=== PATIENT | female | born 1975 | race Caucasian/White ===

== ENCOUNTER 2018-04-29 16:28 | Emergency (ER) | payer MEDICARE, OTHER ==
[~2018-04-29] VITALS: Ht 157.5 cm; Wt 52.6 kg
[~2018-04-29 16:28] MED LIST: (None)20 M1 PO; ALBU.083IS INH; ALBU90OI INH; ALBU90OI61 INH; ANTOXYBENA AD; AZIT250 PO; BENADRYL; BENZ100A PO; Benadryl 50 mg50 MG PO; CEPH500 PO; CLIN300 PO; CYCL10 PO; Child Vitamin1 EACH PO; Cleocin HCl300 MG PO; Cortisporin Ey7.5 ML LEFTEYE; DIPH50 PO; EPIN.3I IM; FAMO40 PO; FERR325 PO; HYDACE5 PO; HYDACE5325 PO; HYDCOR2.5B TOP; HYDHCL25 PO; HYDPAM25 PO; IBUP400 PO; IBUP600 PO; IBUP800 PO; ISODICACE PO; LORA10ER PO; METPRE4DP PO; Mobic15 MG PO; NAPR500 PO; Naprosyn500 MG PO; PRED S O P OP; PRED10 PO; PROM25 PO; PROMETHAZINE-D473 ML PO; PSEU120ER PO; Pepcid20 MG PO; Prednisone10 MG PO; Prednisone20 MG PO; SULTRIDS PO; TRAM50 PO; TRIA80TC TOP; Ultram50 MG PO; Vistaril25 MG PO; Zithromax250 MG PO
[2018-04-29] MEDS ORDERED: Pepcid20 MG PO (17:03)
[2018-04-29] MEDS ORDERED: Prednisone20 MG PO (17:03)
[2018-04-29] MEDS ORDERED: BENADRYL25 MG PO (17:03)
== END 2018-04-29 17:16 | disposition home or self-care (01) ==
LOC: ER 16:28
DX: L50.9 Urticaria, unspecified (principal); F17.210 Nicotine dependence, cigarettes, uncomplicated
CPT/HCPCS: 99282; Q0163

== ENCOUNTER 2018-05-18 18:09 | Emergency (ER) | payer MEDICARE, OTHER ==
[~2018-05-18] VITALS: Ht 157.5 cm; Wt 50.8 kg
[~2018-05-18 18:09] MED LIST changes: +BENADRYL25 MG PO
[2018-05-18] MEDS ORDERED: PRED20 PO (18:51)
== END 2018-05-18 18:59 | disposition home or self-care (01) ==
LOC: ER 18:09
DX: T55.0X1A Toxic effect of soaps, accidental (unintentional), initial encounter (principal); L25.3 Unspecified contact dermatitis due to other chemical products; Z88.0 Allergy status to penicillin; Z88.8 Allergy status to other drugs, medicaments and biological substances; F17.210 Nicotine dependence, cigarettes, uncomplicated
CPT/HCPCS: 99282

== ENCOUNTER 2018-08-07 19:57 | Emergency (ER) | payer MEDICARE, OTHER ==
[~2018-08-07] VITALS: Ht 157.5 cm; Wt 49.8 kg
[~2018-08-07 19:57] MED LIST changes: +PRED20 PO
[2018-08-07] MEDS ORDERED: Prednisone20 MG PO (20:11)
[2018-08-07] MEDS ORDERED: Pepcid40 MG PO (20:11)
== END 2018-08-07 20:17 | disposition home or self-care (01) ==
LOC: ER 19:57
DX: L50.9 Urticaria, unspecified (principal); J45.909 Unspecified asthma, uncomplicated; F17.210 Nicotine dependence, cigarettes, uncomplicated; Z88.0 Allergy status to penicillin; Z88.6 Allergy status to analgesic agent
CPT/HCPCS: 99282; J1100; Q0163

== ENCOUNTER 2018-12-02 14:05 | Emergency (ER) | payer MEDICARE, OTHER ==
[~2018-12-02] VITALS: Ht 157.5 cm; Wt 49.9 kg
[~2018-12-02 14:05] MED LIST changes: +Pepcid40 MG PO
[2018-12-02] MEDS ORDERED: Vibramycin100 MG PO (15:16)
== END 2018-12-02 15:27 | disposition home or self-care (01) ==
LOC: ER 14:05
DX: L03.032 Cellulitis of left toe (principal); L50.9 Urticaria, unspecified; J45.909 Unspecified asthma, uncomplicated; Z88.0 Allergy status to penicillin; Z88.6 Allergy status to analgesic agent; Z79.899 Other long term (current) drug therapy; F17.210 Nicotine dependence, cigarettes, uncomplicated
CPT/HCPCS: 73630; 99283-25

== ENCOUNTER 2019-05-29 13:07 | Emergency (ER) | payer MEDICARE, OTHER ==
[~2019-05-29] VITALS: Ht 157.5 cm; Wt 45.4 kg
[~2019-05-29 13:07] MED LIST changes: +Vibramycin100 MG PO
[2019-05-29] MEDS ORDERED: GUAI600T33 PO (15:33)
[2019-05-29] MEDS ORDERED: AZIT250 PO (15:33)
[2019-05-29] MEDS ORDERED: ALBU90OI INH (15:33)
== END 2019-05-29 15:44 | disposition home or self-care (01) ==
LOC: ER 13:07
DX: J40 Bronchitis, not specified as acute or chronic (principal); Z88.0 Allergy status to penicillin; Z88.6 Allergy status to analgesic agent; F17.200 Nicotine dependence, unspecified, uncomplicated
CPT/HCPCS: 71046; 99283-25

== ENCOUNTER 2022-11-12 17:58 | Emergency (ER) | payer MEDICARE, OTHER ==
[~2022-11-12] VITALS: Ht 157.5 cm; Wt 47.6 kg
[~2022-11-12 17:58] MED LIST changes: +GUAI600T33 PO
[2022-11-12 18:19] VITALS: BP 169/84
[2022-11-12] MEDS ORDERED: OCUFLOX510 RIGHTEAR (19:17)
== END 2022-11-12 19:28 | disposition home or self-care (01) ==
LOC: ER 17:58
DX: H60.91 Unspecified otitis externa, right ear (principal); Z88.0 Allergy status to penicillin; Z88.6 Allergy status to analgesic agent; F17.210 Nicotine dependence, cigarettes, uncomplicated
CPT/HCPCS: 99282; A9270

== ENCOUNTER 2023-01-22 21:55 | Emergency (ER) | payer MEDICARE, OTHER ==
[~2023-01-22] VITALS: Ht 170.2 cm; Wt 40.8 kg
[~2023-01-22 21:55] MED LIST changes: +OCUFLOX510 RIGHTEAR
[2023-01-22 22:01] VITALS: BP 139/82
== END 2023-01-22 23:35 | disposition home or self-care (01) ==
LOC: ER 21:55
DX: B34.9 Viral infection, unspecified (principal); F17.210 Nicotine dependence, cigarettes, uncomplicated; Z88.0 Allergy status to penicillin; Z88.6 Allergy status to analgesic agent
CPT/HCPCS: 99283; J1885

== ENCOUNTER 2023-06-30 19:13 | Inpatient (IN) | payer MEDICARE, OTHER ==
[~2023-06-30] VITALS: Ht 157.5 cm; Wt 45.4 kg
[2023-06-30 20:06] LABS: BASOPHILS ABSOLUTE AUTO 0.04 K/mm3 (0.00-0.23); BASOPHILS PERCENT AUTO 0 % (0-2); EOSINOPHILS ABSOLUTE AUTO 0.09 K/mm3 (0.00-0.68); EOSINOPHILS PERCENT AUTO 1 % (0-6); Hematocrit 46.2 % (33.0-51.0); Hemoglobin 15.8 g/dL (11.5-16.0); IMMATURE GRAN ABSOLUTE AUTO 0.06 K/mm3 (0.00-0.10); IMMATURE GRAN PERCENT AUTO 1 % (0-1); LYMPHOCYTES PERCENT AUTO 25 % (21-46); MONOCYTES PERCENT AUTO 9 % (4-13); Mean Corpuscular HGB Conc 34.2 g/dL (31.5-36.5); Mean Corpuscular Volume 91 fL (80-100); Mean Platelet Volume 9.3 fL (9.1-12.4); NEUTROPHILS ABSOLUTE AUTO 8.43 K/mm3 (1.96-9.15); NEUTROPHILS PERCENT AUTO 65 % (41-73); Platelet Count 303 K/mm3 (150-400); RDW Coefficient Variation 13.2 % (11.7-14.2); RDW Standard Deviation 44.3 fL (35.1-46.3); Red Blood Cell Count 5.09 M/mm3 (3.80-5.20); White Blood Cell Count 12.92 K/mm3 (4.00-11.30)
[2023-06-30 20:38] LABS: Alanine Aminotransfer (ALT/SGP 31 U/L (12-78); Albumin, Blood 3.7 g/dL (3.4-5.0); Albumin/Globulin Ratio 1.1 (0.8-1.8); Alk Phos 80 U/L (50-136); Anion Gap 8 mmol/L (6-16); Aspartate Aminotrans (AST/SGOT 17 U/L (12-37); Bilirubin, Total 0.3 mg/dL (0.1-1.0); Blood Urea Nitrogen 12 mg/dL (8-24); Bun/Creatinine Ratio 21.5 (12.0-20.0); CO2, Blood 25 mmol/L (21-32); Calcium, Blood 9.2 mg/dL (8.5-10.1); Chloride, Blood 110 mmol/L (98-108); Creatinine, Blood 0.56 mg/dL (0.40-1.00); Globulin, Blood 3.4 g/dL (2.2-4.0); Glomerular Filtration Rate 113 (60-); Glucose, Blood 105 mg/dL (70-99); Potassium, Blood 2.9 mmol/L (3.5-5.5); Sodium, Blood 143 mmol/L (136-145); Total Protein, Blood 7.1 g/dL (6.4-8.2)
[2023-06-30] MEDS ORDERED: Potassium Chl 20MEQ/Water100ML 100 ML IV SCH (21:00)
[2023-06-30 21:02] LABS: Magnesium, Blood 2.2 mg/dL (1.6-2.4)
[2023-06-30] MEDS ORDERED: NS 1,000 ML IV ONE ×2 (21:09→22:35)
[2023-06-30] MEDS ORDERED: Acetaminophen 325 MG TABLET PO ONE (21:10)
[2023-06-30 22:00] LABS: International Normalized Ratio 0.97; Prothrombin Time Results 10.2 Sec (9.7-11.5)
[2023-06-30] MEDS ORDERED: Ondansetron HCl 2 MG / ML 2ML Vial IV PRN (22:30)
[2023-06-30] MEDS ORDERED: FLU VACC QS2023-24(6MOS UP)/PF 60 MCG/0.5 ML SYRINGE IM ONE (22:30)
[2023-06-30] MEDS ORDERED: Prednisone10 MG PO (22:38)
[2023-06-30 22:49] LABS: CHOL/HDL RATIO 6.5; Cholesterol 176 mg/dL (50-200); HDL Cholesterol 27 mg/dL (>39); LDL/HDL RATIO 3.5; Low Density Lipoprotein Chol 96 mg/dL (0-110); Triglycerides 267 mg/dL (30-160); Very Low Density Lipoprot Chol 53 mg/dL (6-32)
[2023-06-30] MEDS ORDERED: Clopidogrel Bisulfate 75 MG Tab PO SCH (23:00)
[2023-06-30] MEDS ORDERED: Enoxaparin 40 MG/0.4 ML SYR SC SCH (23:00)
[2023-06-30] MEDS ORDERED: Atorvastatin 40 MG Tab PO SCH (23:00)
[2023-06-30 23:18] VITALS: BP 162/88
[2023-07-01] MEDS ORDERED: Potassium Chloride 20 MEQ TabCR PO ONE (01:25)
[2023-07-01 03:58] VITALS: BP 145/77
--- NOTE | 2023-07-01 04:39 | NUR ---
SHIFT SUMMARY TAMY ARRIVED FROM THE ED AROUND 2300? SHE WAS ALERT AND FULLY ORIENTED, AND ABLE TO TRANSFER SELF TO BED WITH STANDBY ASSIST. 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 PT HAD LOW POTASSIUM 2.9 AND HAD FINISHED HALF A 20 MEQ BAG OF POTASSIUM WHEN SHE ARRIVED. PT WAS NOT TOLERATING THE INFUSION, AND REFUSED TO HAVE IT FINISHED, SHE ALSO REFUSED LOVENOX D/T DISLIKE OF NEEDLES. EDUCATION PROVED, DR NAGEL NOTIFIED, POTASSIUM CHANGED TO PO. PT IS ON TELE RUNNING NSR. 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
[2023-07-01 07:18] VITALS: BP 139/76
--- NOTE | 2023-07-01 07:25 | NUR ---
THIS RN ENTERED THE ROOM DUE TO BED ALARM GOING OFF, PT STATED TO THIS RN "YOU BETTER TURN THAT OFF, I'M ALLOWED TO DO THINGS FOR MYSELF" EDUCATED PT REGARDING THE USE OF THE BED ALARM AND SAFETY RELATED TO FALL RISK, EDUCATED THE PT ON THE CALL LIGHT USE, PATIENT REPORTED SHE WOULD USE THE CALL LIGHT IF SHE NEEDED ASSISTANCE TO GET UP, PT REFUSED MULTIPLE TIMES TO ALLOW BED ALARM TO BE BACK ON
--- NOTE | 2023-07-01 11:12 | NUR ---
PATIENT LEFT AMA UNDER HER OWN POWER AT 0821. SIGNED AMA FORM. DR. MAYFIELD NOTIFIED BY PHONE. IV SALINE LOCK AND TELEMETRY REMOVED WITHOUT INCIDENT. 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
== END 2023-07-01 08:00 | disposition left against medical advice (07) | DRG 65 ==
LOC: ER 19:13 → MEDS 22:29
PROVIDERS: Physician Assistant; Student in an Organized Health Care Education/Training Program; ADMIT Internal Medicine
DX: I63.89 Other cerebral infarction (principal); G81.94 Hemiplegia, unspecified affecting left nondominant side; J45.909 Unspecified asthma, uncomplicated; E87.6 Hypokalemia; E78.5 Hyperlipidemia, unspecified; Z53.29 Procedure and treatment not carried out because of patient's decision for other reasons; F17.210 Nicotine dependence, cigarettes, uncomplicated; Z79.2 Long term (current) use of antibiotics; Z79.899 Other long term (current) drug therapy; Z88.0 Allergy status to penicillin; Z88.8 Allergy status to other drugs, medicaments and biological substances
CPT/HCPCS: 70450; 71046; 80053; 80061; 83735; 83880; 85025; 85610; 93005; 93010; 93880; 96365; 96366; 99285-25; A9270; J1650; J3480; J7030

== ENCOUNTER 2023-10-21 20:25 | Emergency (ER) | payer MEDICARE, OTHER ==
[~2023-10-21] VITALS: Ht 157.5 cm; Wt 39.5 kg
[2023-10-21 20:40] VITALS: BP 162/81
== END 2023-10-21 21:47 | disposition home or self-care (01) ==
LOC: ER 20:25
DX: M79.672 Pain in left foot (principal); Z88.0 Allergy status to penicillin; Z88.6 Allergy status to analgesic agent; J45.909 Unspecified asthma, uncomplicated; F17.210 Nicotine dependence, cigarettes, uncomplicated
CPT/HCPCS: 99282

== ENCOUNTER 2024-04-03 22:56 | Emergency (ER) | payer MEDICARE, OTHER ==
[~2024-04-03] VITALS: Ht 157.5 cm; Wt 50.8 kg
[2024-04-03 23:12] VITALS: BP 152/91
== END 2024-04-04 01:50 | disposition left against medical advice (07) ==
LOC: ER 22:56
DX: M25.532 Pain in left wrist (principal); Z53.29 Procedure and treatment not carried out because of patient's decision for other reasons
CPT/HCPCS: 93005; 93010; 99282-25

== ENCOUNTER 2024-07-07 07:36 | Emergency (ER) | payer MEDICARE, OTHER ==
[~2024-07-07] VITALS: Ht 157.5 cm; Wt 45.4 kg
[2024-07-07 07:49] VITALS: BP 130/81
[2024-07-07] MEDS ORDERED: TRIDERM28.4 GM TOP (08:45)
== END 2024-07-07 09:19 | disposition home or self-care (01) ==
LOC: ER 07:36
DX: L25.9 Unspecified contact dermatitis, unspecified cause (principal); J45.909 Unspecified asthma, uncomplicated; F17.210 Nicotine dependence, cigarettes, uncomplicated
CPT/HCPCS: 99282

== ENCOUNTER 2024-07-20 17:13 | Emergency (ER) | payer MEDICARE, OTHER ==
[~2024-07-20] VITALS: Ht 157.5 cm; Wt 45.4 kg
[~2024-07-20 17:13] MED LIST changes: +TRIDERM28.4 GM TOP
[2024-07-20 17:22] VITALS: BP 137/86
[2024-07-20] MEDS ORDERED: DiphenhydrAMINE HCl 50 MG/ML 1ML Vial IV ONE (17:25)
[2024-07-20] MEDS ORDERED: MethylPREDNISolone Sod Succ 125 MG Vial IV ONE (17:25)
[2024-07-20] MEDS ORDERED: DiphenhydrAMINE HCL 25 MG Cap PO ONE (17:25)
[2024-07-20] MEDS ORDERED: Famotidine 10 MG/ML 2ML Vial IV ONE (17:25)
[2024-07-20] MEDS ORDERED: PredniSONE 20 MG Tab PO ONE (17:30)
[2024-07-20] MEDS ORDERED: PRED20 PO (18:06)
== END 2024-07-20 18:06 | disposition home or self-care (01) ==
LOC: ER 17:13
DX: L50.0 Allergic urticaria (principal); Z88.0 Allergy status to penicillin; Z88.8 Allergy status to other drugs, medicaments and biological substances; Z79.52 Long term (current) use of systemic steroids; F17.210 Nicotine dependence, cigarettes, uncomplicated; J45.909 Unspecified asthma, uncomplicated; Z59.89 Other problems related to housing and economic circumstances
CPT/HCPCS: 99283; A9270; J7512

== ENCOUNTER 2024-07-30 12:59 | Emergency (ER) | payer MEDICARE, OTHER ==
[~2024-07-30] VITALS: Ht 160 cm; Wt 52.2 kg
[2024-07-30 13:08] VITALS: BP 108/94
[2024-07-30] MEDS ORDERED: Prednisone20 MG PO (13:10)
== END 2024-07-30 13:11 | disposition home or self-care (01) ==
LOC: ER 12:59
DX: L25.9 Unspecified contact dermatitis, unspecified cause (principal); J45.909 Unspecified asthma, uncomplicated; Z88.0 Allergy status to penicillin; Z88.8 Allergy status to other drugs, medicaments and biological substances; Z79.52 Long term (current) use of systemic steroids
CPT/HCPCS: 99282

== ENCOUNTER 2024-08-03 21:19 | Emergency (ER) | payer OTHER ==
[~2024-08-03] VITALS: Ht 157.5 cm; Wt 38.6 kg
[2024-08-03 21:30] VITALS: BP 138/90
[2024-08-03] MEDS ORDERED: diphenhydrAMINE HCl 12.5 MG/5 ML 5MLUDC (Alcohol/Dye Free) PO ONE (21:55)
[2024-08-03] MEDS ORDERED: Famotidine 20 MG Tab PO ONE (21:55)
== END 2024-08-03 23:45 | disposition home or self-care (01) ==
LOC: ER 21:19
DX: M25.512 Pain in left shoulder (principal); J45.909 Unspecified asthma, uncomplicated; F17.210 Nicotine dependence, cigarettes, uncomplicated; Z88.0 Allergy status to penicillin; Z88.6 Allergy status to analgesic agent
CPT/HCPCS: 73030; 99283-25

== ENCOUNTER 2024-09-01 06:38 | Emergency (ER) | payer OTHER ==
[2024-09-02] MEDS ORDERED: IBUP600 PO (19:00)
[2024-09-02] MEDS ORDERED: FAMO20 PO (19:00)
== END 2024-09-01 07:08 | disposition left against medical advice (07) ==
LOC: ER 06:38
DX: L50.9 Urticaria, unspecified (principal); Z53.21 Procedure and treatment not carried out due to patient leaving prior to being seen by health care provider; Z88.0 Allergy status to penicillin; Z88.6 Allergy status to analgesic agent

== ENCOUNTER 2024-09-02 17:33 | Emergency (ER) | payer OTHER ==
[~2024-09-02] VITALS: Ht 157.5 cm; Wt 45.4 kg
[2024-09-02 17:40] VITALS: BP 134/69
[2024-09-02] MEDS ORDERED: Ketorolac Tromethamine 15mg Vial IM ONE (18:45)
[2024-09-02] MEDS ORDERED: IBUP600 PO (19:00)
[2024-09-02] MEDS ORDERED: FAMO20 PO (19:00)
[2024-09-02] MEDS ORDERED: Ibuprofen 600 MG Tab PO ONE ×2 (19:00→19:05)
== END 2024-09-02 19:14 | disposition home or self-care (01) ==
LOC: ER 17:33
DX: S29.011A Strain of muscle and tendon of front wall of thorax, initial encounter (principal); F17.210 Nicotine dependence, cigarettes, uncomplicated; Z88.0 Allergy status to penicillin
CPT/HCPCS: 71100; 99283-25; A9270; J1885

== ENCOUNTER 2024-09-05 14:42 | Emergency (ER) | payer OTHER ==
[~2024-09-05] VITALS: Ht 157.5 cm; Wt 45.4 kg
[~2024-09-05 14:42] MED LIST changes: +FAMO20 PO
[2024-09-05 14:44] VITALS: BP 146/83
[2024-09-05] MEDS ORDERED: Prednisone20 MG PO (14:47)
== END 2024-09-05 14:48 | disposition home or self-care (01) ==
LOC: ER 14:42
DX: L50.9 Urticaria, unspecified (principal); J45.909 Unspecified asthma, uncomplicated; F17.210 Nicotine dependence, cigarettes, uncomplicated; Z79.52 Long term (current) use of systemic steroids; Z79.899 Other long term (current) drug therapy; Z88.0 Allergy status to penicillin; Z88.6 Allergy status to analgesic agent
CPT/HCPCS: 99283

== ENCOUNTER 2024-11-13 20:13 | Emergency (ER) | payer MEDICARE, OTHER ==
[~2024-11-13] VITALS: Ht 157.5 cm; Wt 45.4 kg
[2024-11-13 20:50] VITALS: BP 142/82
[2024-11-13] MEDS ORDERED: PRED20 PO (22:52)
== END 2024-11-13 23:39 | disposition home or self-care (01) ==
LOC: ER 20:13
DX: S29.011A Strain of muscle and tendon of front wall of thorax, initial encounter (principal); X50.1XXA Overexertion from prolonged static or awkward postures, initial encounter; R21 Rash and other nonspecific skin eruption; J45.909 Unspecified asthma, uncomplicated; F17.210 Nicotine dependence, cigarettes, uncomplicated; Z79.899 Other long term (current) drug therapy; Z88.0 Allergy status to penicillin; Z88.8 Allergy status to other drugs, medicaments and biological substances; Z91.013 Allergy to seafood
CPT/HCPCS: 71045; 93005; 93010; 99283-25; A9270; J7512

== ENCOUNTER 2024-11-24 17:33 | Emergency (ER) | payer MEDICARE, OTHER ==
[~2024-11-24] VITALS: Ht 157.5 cm; Wt 45.4 kg
[2024-11-24 17:43] VITALS: BP 140/74
[2024-11-24] MEDS ORDERED: RX Prepack Albuterol 1 PREPACK/6.7 GM INH UD ONE (17:50)
[2024-11-24] MEDS ORDERED: Prednisone20 MG PO (17:57)
== END 2024-11-24 18:09 | disposition home or self-care (01) ==
LOC: ER 17:33
DX: L25.5 Unspecified contact dermatitis due to plants, except food (principal); J45.909 Unspecified asthma, uncomplicated; F17.210 Nicotine dependence, cigarettes, uncomplicated; Z88.0 Allergy status to penicillin; Z88.8 Allergy status to other drugs, medicaments and biological substances; Z91.013 Allergy to seafood
CPT/HCPCS: 99282; A9270; J7512

== ENCOUNTER 2024-12-27 19:22 | Emergency (ER) | payer MEDICARE, OTHER ==
[~2024-12-27] VITALS: Ht 157.5 cm; Wt 38.6 kg
[2024-12-27 19:49] VITALS: BP 140/79
[2024-12-27] MEDS ORDERED: Prednisone20 MG PO (20:12)
[2024-12-27] MEDS ORDERED: BENADRYL25 MG PO (20:12)
== END 2024-12-27 20:17 | disposition home or self-care (01) ==
LOC: ER 19:22
DX: R21 Rash and other nonspecific skin eruption (principal); J45.909 Unspecified asthma, uncomplicated; Z79.899 Other long term (current) drug therapy; F17.210 Nicotine dependence, cigarettes, uncomplicated; Z88.0 Allergy status to penicillin; Z88.8 Allergy status to other drugs, medicaments and biological substances; Z91.013 Allergy to seafood
CPT/HCPCS: 99282; A9270; J7512

== ENCOUNTER 2025-02-17 10:27 | Emergency (ER) | payer MEDICARE, OTHER ==
[~2025-02-17] VITALS: Ht 157.5 cm; Wt 45.4 kg
[2025-02-17 10:40] VITALS: BP 147/78
== END 2025-02-17 12:28 | disposition left against medical advice (07) ==
LOC: ER 10:27
DX: M79.674 Pain in right toe(s) (principal); G89.29 Other chronic pain; J45.909 Unspecified asthma, uncomplicated; F17.210 Nicotine dependence, cigarettes, uncomplicated; Z88.0 Allergy status to penicillin; Z88.8 Allergy status to other drugs, medicaments and biological substances; Z91.013 Allergy to seafood
CPT/HCPCS: 99283

== ENCOUNTER 2025-04-29 17:42 | Emergency (ER) | payer MEDICARE, OTHER ==
[~2025-04-29] VITALS: Ht 157.5 cm; Wt 45.4 kg
[2025-04-29 17:51] VITALS: BP 137/79
== END 2025-04-29 18:34 | disposition home or self-care (01) ==
LOC: ER 17:42
DX: M79.645 Pain in left finger(s) (principal); M79.642 Pain in left hand; F17.210 Nicotine dependence, cigarettes, uncomplicated; Z88.0 Allergy status to penicillin; Z88.6 Allergy status to analgesic agent; Z91.013 Allergy to seafood
CPT/HCPCS: 73130; 99283-25; A9270